=== PATIENT | male | born 1945 | race Caucasian/White ===

== ENCOUNTER 2018-07-18 15:40 | Emergency (ER) | payer MEDICARE ==
[2018-07-18 16:05] VITALS: RESP 20
[2018-07-18] MEDS: SODIUM CHLORIDE 0.9% 250 ML 250 ML IV ONE (16:16)
[2018-07-18] MEDS: RANITIDINE HYDROCHLORIDE 25 MG/ML SOL IV ONE (16:33)
[2018-07-18 16:36] VITALS: BP 140/78; PULSE 94; TEMP 97.5; O2SAT 90
[2018-07-18] MEDS ORDERED: RANITIDINE HYDROCHLORIDE 25 MG/ML SOL ONE (16:38)
== END 2018-07-18 17:45 | disposition home or self-care (01) | DRG 918 ==
LOC: ED 15:40
DX: T45.1X5A Adverse effect of antineoplastic and immunosuppressive drugs, initial encounter (principal)
CPT/HCPCS: 36415; 80053; 85025; 99283; J2780